=== PATIENT | male | born 1950 | race Caucasian/White ===

== ENCOUNTER 2025-05-29 11:23 | Inpatient (IN) ==
[2025-05-29] MEDS ORDERED: IOPAMIDOL 100 ML BOTTLE IV ONE ×2 (11:24)
[2025-05-29] MEDS: ACETAMINOPHEN 325 MG TABLET PO ONE (12:41)
[2025-05-29 12:47] LABS: Basophils # (Auto) 0.02 K/mcL (0.00-0.30); Basophils % (Auto) 0.1 % (0.0-2.0); Eosinophils # (Auto) 0.04 K/mcL (0.00-0.70); Eosinophils % (Auto) 0.2 % (0.0-7.0); Hematocrit 37.3 % (40.1-51.0); Hemoglobin 13.5 g/dL (13.7-17.5); Lymphocytes # (Auto) 0.61 K/mcL (1.50-4.80); Lymphocytes % (Auto) 3.2 % (15.5-49.0); Mean Corpuscular HGB Conc 36.2 g/dL (31.0-36.0); Monocytes # (Auto) 0.84 K/mcL (0.10-0.90); Monocytes % (Auto) 4.5 % (1.0-12.0); Neutrophils % (Auto) 91.6 % (38.0-78.0); Platelet Count 320 K/mcL (140-440); RBC 4.14 M/mcL (4.63-6.08); WBC 18.8 K/mcL (4.5-11.0)
[2025-05-29] MEDS: ACETAMINOPHEN 1,000 MG/100 ML BAG IV ONE (12:48)
[2025-05-29] MEDS: 0.9 % SODIUM CHLORIDE 1,000 ML IV ONE (12:48)
[2025-05-29 13:00] LABS: Alcohol,Blood < 0.010 gm/dL (<0.010)
[2025-05-29 13:27] LABS: ALT/SGPT 63 U/L (<40); AST/SGOT 122 U/L (<40); Albumin 3.6 gm/dL (3.2-5.2); Albumin/Globulin Ratio 1.3 (1.0-2.3); Alkaline Phosphatase 164 U/L (39-117); Bilirubin,Total 1.3 mg/dL (0.1-1.0); Blood Urea Nitrogen 7 mg/dL (8-23); Calcium 9.8 mg/dL (8.6-10.4); Carbon Dioxide 17 mmol/L (22-30); Globulin 2.8 gm/dL (2.2-3.7); Glucose 120 mg/dL (70-105); Potassium 4.5 mmol/L (3.3-5.1)
[2025-05-29 16:58] LABS: Bilirubin,Urine Negative (Negative); Color,Urine YELLOW; Glucose,Urine (UA) Negative (Negative); Ketones,Urine 5 mg/dL (Negative); Leukocyte Esterase,Urine Negative /uL (Negative); PH,Urine 6.0 (5.0-9.0); Protein,Urine Negative (Negative); Specific Gravity,Urine 1.017 (1.000-1.035); Urobilinogen,Urine Negative
[2025-05-29 17:06] LABS: Barbiturate Screen,Urine None detected; Benzodiazepines Screen,Urine None detected; Fentanyl, Urine Screen None Detected; Opiate Screen,Urine None detected; Oxycodone, Urine Screen None detected; Phencyclidine Screen,Urine None detected
[2025-05-29] MEDS: ASPIRIN 81 MG TAB.CHEW CHEWED ONE (17:53)
[2025-05-29] MEDS: CLOPIDOGREL 75 MG TABLET PO ONE (18:06)
[2025-05-29 18:30] LABS: INR 1.1 (0.9-1.1); Prothrombin Time 14.6 sec (11.9-14.5)
[2025-05-29 18:59] LABS: RBC Morphology NORMAL (Normal)
[2025-05-29] MEDS ORDERED: ONDANSETRON 4 MG/2 ML VIAL IV PRN (19:26)
[2025-05-29] MEDS ORDERED: MAGNESIUM SULFATE 2 GM/50 ML BAG IV PRN (19:26)
[2025-05-29] MEDS ORDERED: DIAZEPAM 10 MG/2 ML SYRINGE IV PRN (19:26)
[2025-05-29] MEDS ORDERED: IPRATROPIUM/ALBUTEROL 3 ML AMPUL.NEB NEB PRN (19:26)
[2025-05-29] MEDS ORDERED: POTASSIUM CHLORIDE 20 MEQ TABLET PO PRN (19:26)
[2025-05-29] MEDS ORDERED: POLYETHYLENE GLYCOL 3350 17 GM PACKET PO PRN (19:26)
[2025-05-29] MEDS ORDERED: POTASSIUM CHLORIDE 40 MEQ in DEXTROSE 5% IN WATER 500 ML IV PRN (19:26)
[2025-05-29] MEDS ORDERED: hydrALAZINE 20 MG/ML VIAL IV PRN (19:26)
[2025-05-29] MEDS ORDERED: SENNOSIDES 1 TABLET PO PRN (19:26)
[2025-05-29] MEDS ORDERED: METOCLOPRAMIDE 10 MG/2 ML VIAL IV PRN (19:26)
[2025-05-29 19:27] LABS: Sodium 118 mmol/L (133-145)
[2025-05-29] MEDS: DEXTROSE 5%-NS 1,000 ML IV SCH (19:38)
[2025-05-29 19:39] LABS: Anion Gap 20.0 (8.0-16.0); Chloride 81 mmol/L (96-108)
[2025-05-29] MEDS: ACETAMINOPHEN 325 MG TABLET PO PRN (20:10)
[2025-05-29] MEDS: NICOTINE POLACRILEX 2 MG GUM CHEW/PARK PRN (20:10)
[2025-05-29] MEDS: GABAPENTIN 300 MG CAPSULE PO SCH ×2 (20:10→20:12)
[2025-05-29] MEDS: FOLIC ACID 1 MG TABLET PO SCH (20:10)
[2025-05-29] MEDS: PANTOPRAZOLE 40 MG VIAL IV SCH (20:11)
[2025-05-29] MEDS: MULTIVIT,THER IRON,CA,FA & MIN 1 TABLET PO SCH (20:11)
[2025-05-29] MEDS: THIAMINE 100 MG in 0.9 % SODIUM CHLORIDE 50 ML IV SCH (20:11)
[2025-05-29] MEDS: 0.9 % SODIUM CHLORIDE 10 ML SYRINGE IV SCH (20:12)
[2025-05-29] MEDS: DOCUSATE SODIUM 100 MG CAPSULE PO SCH (20:12)
[2025-05-29 20:13] LABS: Thyroid Stimulating Hormone 2.77 uIU/mL (0.27-5.01)
[2025-05-29] MEDS: THIAMINE 100 MG/ML VIAL ONE (20:15)
[2025-05-29] MEDS: HEPARIN 5,000 UNIT/ML VIAL SQ SCH (20:18)
[2025-05-29] MEDS: SODIUM CHLORIDE 1 GM TABLET PO SCH (20:18)
[2025-05-29 20:38] LABS: Sodium 116 mmol/L (133-145)
[2025-05-29 20:57] LABS: HDL Cholesterol 97 mg/dL (>40); LDL Cholesterol,Calculated 26 mg/dL (<100); Triglycerides 45 mg/dL (<150)
[2025-05-29] MEDS: SODIUM CHLORIDE 3 % 100 ML IV ONE (21:10)
[2025-05-29 21:19] LABS: Sodium, Urine Random < 20 mmol/L
[2025-05-29] MEDS: SODIUM CHLORIDE 3 % 500 ML IV ONE (21:25)
[2025-05-29 23:46] LABS: Sodium 121 mmol/L (133-145)
[2025-05-30 06:38] LABS: Basophils # (Auto) 0.01 K/mcL (0.00-0.30); Basophils % (Auto) 0.1 % (0.0-2.0); Eosinophils # (Auto) 0.01 K/mcL (0.00-0.70); Eosinophils % (Auto) 0.1 % (0.0-7.0); Hematocrit 32.0 % (40.1-51.0); Hemoglobin 11.3 g/dL (13.7-17.5); Lymphocytes # (Auto) 1.18 K/mcL (1.50-4.80); Lymphocytes % (Auto) 11.0 % (15.5-49.0); Mean Corpuscular HGB Conc 35.3 g/dL (31.0-36.0); Monocytes # (Auto) 0.55 K/mcL (0.10-0.90); Monocytes % (Auto) 5.1 % (1.0-12.0); Neutrophils % (Auto) 83.3 % (38.0-78.0); Platelet Count 286 K/mcL (140-440); RBC 3.44 M/mcL (4.63-6.08); WBC 10.8 K/mcL (4.5-11.0)
[2025-05-30 08:26] LABS: ALT/SGPT 46 U/L (<40); AST/SGOT 75 U/L (<40); Albumin 3.1 gm/dL (3.2-5.2); Albumin/Globulin Ratio 1.3 (1.0-2.3); Alkaline Phosphatase 129 U/L (39-117); Anion Gap 11.0 (8.0-16.0); Bilirubin,Direct 0.3 mg/dL (<0.3); Bilirubin,Total 0.6 mg/dL (0.1-1.0); Blood Urea Nitrogen 8 mg/dL (8-23); Calcium 8.5 mg/dL (8.6-10.4); Carbon Dioxide 21 mmol/L (22-30); Chloride 90 mmol/L (96-108); Globulin 2.3 gm/dL (2.2-3.7); Glucose 148 mg/dL (70-105); Phosphorous 3.2 mg/dL (2.5-4.5); Potassium 3.2 mmol/L (3.3-5.1); Sodium 122 mmol/L (133-145); Triglycerides 47 mg/dL (<150); Uric Acid 3.9 mg/dL (2.5-8.0)
[2025-05-30] MEDS: ASPIRIN 81 MG TAB.CHEW PO SCH (08:37)
[2025-05-30] MEDS: CLOPIDOGREL 75 MG TABLET PO SCH (08:38)
[2025-05-30] MEDS: LISINOPRIL 20 MG TABLET PO SCH (08:38)
[2025-05-30] MEDS: POTASSIUM CHLORIDE 20 MEQ TABLET PO PRN (08:38)
[2025-05-30] MEDS: PANTOPRAZOLE 40 MG PACKET PO SCH (08:38)
[2025-05-30] MEDS: SODIUM BICARBONATE 650 MG TABLET PO SCH (08:45)
[2025-05-30] MEDS ORDERED: DIAZEPAM 10 MG/2 ML SYRINGE IV PRN (10:23)
[2025-05-30 15:04] LABS: Sodium 123 mmol/L (133-145)
[2025-05-30] MEDS: NICOTINE 7 MG PATCH TOPICAL SCH (17:16)
[2025-05-30 20:40] LABS: Sodium 123 mmol/L (133-145)
[2025-05-31 05:54] LABS: Basophils # (Auto) 0.03 K/mcL (0.00-0.30); Basophils % (Auto) 0.3 % (0.0-2.0); Eosinophils # (Auto) 0.05 K/mcL (0.00-0.70); Eosinophils % (Auto) 0.5 % (0.0-7.0); Hematocrit 30.2 % (40.1-51.0); Hemoglobin 10.7 g/dL (13.7-17.5); Lymphocytes # (Auto) 1.41 K/mcL (1.50-4.80); Lymphocytes % (Auto) 14.3 % (15.5-49.0); Mean Corpuscular HGB Conc 35.4 g/dL (31.0-36.0); Monocytes # (Auto) 0.53 K/mcL (0.10-0.90); Monocytes % (Auto) 5.4 % (1.0-12.0); Neutrophils % (Auto) 79.3 % (38.0-78.0); Platelet Count 241 K/mcL (140-440); RBC 3.22 M/mcL (4.63-6.08); WBC 9.9 K/mcL (4.5-11.0)
[2025-05-31 06:11] LABS: ALT/SGPT 37 U/L (<40); AST/SGOT 54 U/L (<40); Albumin 3.0 gm/dL (3.2-5.2); Albumin/Globulin Ratio 1.5 (1.0-2.3); Alkaline Phosphatase 121 U/L (39-117); Anion Gap 8.0 (8.0-16.0); Bilirubin,Direct 0.2 mg/dL (<0.3); Bilirubin,Total 0.4 mg/dL (0.1-1.0); Blood Urea Nitrogen 7 mg/dL (8-23); Calcium 8.5 mg/dL (8.6-10.4); Carbon Dioxide 25 mmol/L (22-30); Chloride 93 mmol/L (96-108); Globulin 2.0 gm/dL (2.2-3.7); Glucose 104 mg/dL (70-105); Phosphorous 1.9 mg/dL (2.5-4.5); Potassium 3.7 mmol/L (3.3-5.1); Sodium 126 mmol/L (133-145); Triglycerides 47 mg/dL (<150); Uric Acid 3.1 mg/dL (2.5-8.0)
[2025-05-31] MEDS: POTASSIUM PHOSPHATE 40 MEQ in DEXTROSE 5% IN WATER 500 ML IV ONE (10:25)
[2025-05-31 15:25] LABS: Sodium 123 mmol/L (133-145)
[2025-05-31 20:27] LABS: Sodium 123 mmol/L (133-145)
[2025-05-31 21:35] LABS: Phosphorous 2.4 mg/dL (2.5-4.5)
[2025-06-01] MEDS: NEUTRA PHOS 1 PACKET ONE (00:40)
[2025-06-01] MEDS: NEUTRA PHOS 1 PACKET PO ONE (00:44)
[2025-06-01 01:53] LABS: Sodium, Urine Random < 20 mmol/L
[2025-06-01 06:14] LABS: Basophils # (Auto) 0.04 K/mcL (0.00-0.30); Basophils % (Auto) 0.5 % (0.0-2.0); Eosinophils # (Auto) 0.04 K/mcL (0.00-0.70); Eosinophils % (Auto) 0.5 % (0.0-7.0); Hematocrit 30.1 % (40.1-51.0); Hemoglobin 10.4 g/dL (13.7-17.5); Lymphocytes # (Auto) 1.36 K/mcL (1.50-4.80); Lymphocytes % (Auto) 17.3 % (15.5-49.0); Mean Corpuscular HGB Conc 34.6 g/dL (31.0-36.0); Monocytes # (Auto) 0.43 K/mcL (0.10-0.90); Monocytes % (Auto) 5.5 % (1.0-12.0); Neutrophils % (Auto) 75.9 % (38.0-78.0); Platelet Count 235 K/mcL (140-440); RBC 3.18 M/mcL (4.63-6.08); WBC 7.9 K/mcL (4.5-11.0)
[2025-06-01 06:37] LABS: ALT/SGPT 34 U/L (<40); AST/SGOT 53 U/L (<40); Albumin 2.9 gm/dL (3.2-5.2); Albumin/Globulin Ratio 1.5 (1.0-2.3); Alkaline Phosphatase 114 U/L (39-117); Anion Gap 8.0 (8.0-16.0); Bilirubin,Direct < 0.2 mg/dL (0-0.3); Bilirubin,Total 0.4 mg/dL (0.1-1.0); Blood Urea Nitrogen 7 mg/dL (8-23); Calcium 8.4 mg/dL (8.6-10.4); Carbon Dioxide 25 mmol/L (22-30); Chloride 92 mmol/L (96-108); Globulin 1.9 gm/dL (2.2-3.7); Glucose 101 mg/dL (70-105); Phosphorous 2.9 mg/dL (2.5-4.5); Potassium 4.0 mmol/L (3.3-5.1); Sodium 125 mmol/L (133-145); Triglycerides 63 mg/dL (<150); Uric Acid 2.7 mg/dL (2.5-8.0)
[2025-06-01] MEDS: THIAMINE 100 MG TABLET PO SCH (08:10)
[2025-06-01] MEDS: 0.9 % SODIUM CHLORIDE 1,000 ML IV SCH (08:16)
[2025-06-01 17:05] LABS: Sodium 126 mmol/L (133-145)
[2025-06-02 06:14] LABS: Basophils # (Auto) 0.04 K/mcL (0.00-0.30); Basophils % (Auto) 0.6 % (0.0-2.0); Eosinophils # (Auto) 0.05 K/mcL (0.00-0.70); Eosinophils % (Auto) 0.7 % (0.0-7.0); Hematocrit 29.4 % (40.1-51.0); Hemoglobin 10.2 g/dL (13.7-17.5); Lymphocytes # (Auto) 0.98 K/mcL (1.50-4.80); Lymphocytes % (Auto) 14.6 % (15.5-49.0); Mean Corpuscular HGB Conc 34.7 g/dL (31.0-36.0); Monocytes # (Auto) 0.42 K/mcL (0.10-0.90); Monocytes % (Auto) 6.3 % (1.0-12.0); Neutrophils % (Auto) 77.7 % (38.0-78.0); Platelet Count 249 K/mcL (140-440); RBC 3.10 M/mcL (4.63-6.08); WBC 6.7 K/mcL (4.5-11.0)
[2025-06-02 06:23] LABS: ALT/SGPT 34 U/L (<40); AST/SGOT 52 U/L (<40); Albumin 2.9 gm/dL (3.2-5.2); Albumin/Globulin Ratio 1.5 (1.0-2.3); Alkaline Phosphatase 107 U/L (39-117); Anion Gap 8.0 (8.0-16.0); Bilirubin,Direct < 0.2 mg/dL (0-0.3); Bilirubin,Total 0.4 mg/dL (0.1-1.0); Blood Urea Nitrogen 8 mg/dL (8-23); Calcium 8.4 mg/dL (8.6-10.4); Carbon Dioxide 26 mmol/L (22-30); Chloride 93 mmol/L (96-108); Globulin 1.9 gm/dL (2.2-3.7); Glucose 91 mg/dL (70-105); Phosphorous 2.7 mg/dL (2.5-4.5); Potassium 3.7 mmol/L (3.3-5.1); Sodium 127 mmol/L (133-145); Triglycerides 73 mg/dL (<150); Uric Acid 2.1 mg/dL (2.5-8.0)
[2025-06-02] MEDS: 0.9 % SODIUM CHLORIDE 1,000 ML IV ONE (08:55)
[2025-06-02] MEDS: SODIUM CHLORIDE 1 GM TABLET PO ONE (08:57)
[2025-06-02 10:34] LABS: Sodium 126 mmol/L (133-145)
[2025-06-02 11:36] LABS: Sodium, Urine Random 123 mmol/L
[2025-06-02] MEDS: SODIUM CHLORIDE 1 GM TABLET PO SCH (13:12)
[2025-06-02 14:51] LABS: Sodium 128 mmol/L (133-145)
[2025-06-02] MEDS: NACL 0.9% W/KCL 20MEQ 1,000 ML IV SCH (16:18)
[2025-06-02] MEDS: FUROSEMIDE 20 MG/2 ML VIAL IV SCH (16:22)
[2025-06-02 18:37] LABS: Anion Gap 11.0 (8.0-16.0); Blood Urea Nitrogen 10 mg/dL (8-23); Calcium 8.3 mg/dL (8.6-10.4); Carbon Dioxide 23 mmol/L (22-30); Chloride 95 mmol/L (96-108); Glucose 139 mg/dL (70-105); Potassium 3.9 mmol/L (3.3-5.1); Sodium 129 mmol/L (133-145)
[2025-06-02] MEDS: MAGNESIUM SULFATE 8.12 MEQ/2 ML VIAL ONE (19:59)
[2025-06-02] MEDS: MAGNESIUM SULFATE 1 GM/100 ML BAG IV ONE (20:31)
[2025-06-03 06:43] LABS: Basophils # (Auto) 0.04 K/mcL (0.00-0.30); Basophils % (Auto) 0.7 % (0.0-2.0); Eosinophils # (Auto) 0.05 K/mcL (0.00-0.70); Eosinophils % (Auto) 0.8 % (0.0-7.0); Hematocrit 28.9 % (40.1-51.0); Hemoglobin 9.8 g/dL (13.7-17.5); Lymphocytes # (Auto) 0.97 K/mcL (1.50-4.80); Lymphocytes % (Auto) 16.3 % (15.5-49.0); Mean Corpuscular HGB Conc 33.9 g/dL (31.0-36.0); Monocytes # (Auto) 0.51 K/mcL (0.10-0.90); Monocytes % (Auto) 8.6 % (1.0-12.0); Neutrophils % (Auto) 73.6 % (38.0-78.0); Platelet Count 245 K/mcL (140-440); RBC 3.04 M/mcL (4.63-6.08); WBC 6.0 K/mcL (4.5-11.0)
[2025-06-03 07:02] LABS: ALT/SGPT 36 U/L (<40); AST/SGOT 55 U/L (<40); Albumin 2.6 gm/dL (3.2-5.2); Albumin/Globulin Ratio 1.1 (1.0-2.3); Alkaline Phosphatase 108 U/L (39-117); Anion Gap 10.0 (8.0-16.0); Bilirubin,Direct < 0.2 mg/dL (0-0.3); Bilirubin,Total 0.3 mg/dL (0.1-1.0); Blood Urea Nitrogen 8 mg/dL (8-23); Calcium 8.5 mg/dL (8.6-10.4); Carbon Dioxide 26 mmol/L (22-30); Chloride 93 mmol/L (96-108); Globulin 2.3 gm/dL (2.2-3.7); Glucose 96 mg/dL (70-105); Phosphorous 3.0 mg/dL (2.5-4.5); Potassium 3.6 mmol/L (3.3-5.1); Sodium 129 mmol/L (133-145); Triglycerides 70 mg/dL (<150); Uric Acid 2.1 mg/dL (2.5-8.0)
[2025-06-03] MEDS: METHOCARBAMOL 750 MG TABLET PO PRN (14:53)
[2025-06-04 06:18] LABS: Basophils # (Auto) 0.05 K/mcL (0.00-0.30); Basophils % (Auto) 0.8 % (0.0-2.0); Eosinophils # (Auto) 0.07 K/mcL (0.00-0.70); Eosinophils % (Auto) 1.1 % (0.0-7.0); Hematocrit 27.9 % (40.1-51.0); Hemoglobin 9.6 g/dL (13.7-17.5); Lymphocytes # (Auto) 0.92 K/mcL (1.50-4.80); Lymphocytes % (Auto) 14.5 % (15.5-49.0); Mean Corpuscular HGB Conc 34.4 g/dL (31.0-36.0); Monocytes # (Auto) 0.63 K/mcL (0.10-0.90); Monocytes % (Auto) 9.9 % (1.0-12.0); Neutrophils % (Auto) 73.5 % (38.0-78.0); Platelet Count 255 K/mcL (140-440); RBC 2.93 M/mcL (4.63-6.08); WBC 6.3 K/mcL (4.5-11.0)
[2025-06-04 06:51] LABS: ALT/SGPT 36 U/L (<40); AST/SGOT 52 U/L (<40); Albumin 2.6 gm/dL (3.2-5.2); Albumin/Globulin Ratio 1.2 (1.0-2.3); Alkaline Phosphatase 103 U/L (39-117); Anion Gap 10.0 (8.0-16.0); Bilirubin,Direct < 0.2 mg/dL (0-0.3); Bilirubin,Total 0.3 mg/dL (0.1-1.0); Blood Urea Nitrogen 7 mg/dL (8-23); Calcium 8.6 mg/dL (8.6-10.4); Carbon Dioxide 26 mmol/L (22-30); Chloride 94 mmol/L (96-108); Globulin 2.2 gm/dL (2.2-3.7); Glucose 95 mg/dL (70-105); Phosphorous 3.2 mg/dL (2.5-4.5); Potassium 3.7 mmol/L (3.3-5.1); Sodium 130 mmol/L (133-145); Triglycerides 65 mg/dL (<150); Uric Acid 2.4 mg/dL (2.5-8.0)
[2025-06-04] MEDS: GABAPENTIN 300 MG CAPSULE PO SCH (21:05)
[2025-06-05 09:35] LABS: ALT/SGPT 44 U/L (<40); AST/SGOT 59 U/L (<40); Albumin 2.9 gm/dL (3.2-5.2); Albumin/Globulin Ratio 1.0 (1.0-2.3); Alkaline Phosphatase 118 U/L (39-117); Anion Gap 9.0 (8.0-16.0); Bilirubin,Direct < 0.2 mg/dL (0-0.3); Bilirubin,Total 0.3 mg/dL (0.1-1.0); Blood Urea Nitrogen 8 mg/dL (8-23); Calcium 9.2 mg/dL (8.6-10.4); Carbon Dioxide 27 mmol/L (22-30); Chloride 94 mmol/L (96-108); Globulin 2.8 gm/dL (2.2-3.7); Glucose 143 mg/dL (70-105); Phosphorous 3.3 mg/dL (2.5-4.5); Potassium 4.0 mmol/L (3.3-5.1); Sodium 130 mmol/L (133-145); Triglycerides 82 mg/dL (<150); Uric Acid 2.4 mg/dL (2.5-8.0)
== END 2025-06-05 14:25 | DRG 640 ==
LOC: ED 11:23 → ICU 19:25 → MEDSUR 06-04 11:06
PROVIDERS: ADMIT Internal Medicine; ATTEND Student in an Organized Health Care Education/Training Program